=== PATIENT | male | born 1950 | race Caucasian/White ===

== ENCOUNTER → 2018-10-19 | Outpatient (CLI) | payer OTHER ==
[~2018-10-19] VITALS: Ht 172.7 cm; Wt 83.4 kg
[~2018-10-19] MED LIST: ATORVASTATIN CA40 MG PO; BUPROPION HCL150 M1 PO; CO Q-10100 MG PO; IBUPROFEN 200200 M1 PO; VITAMIN D1000 UNI1 PO
--- NOTE | ~2018-10-19 | HPC ---
[facility] [address] [place] [address] PAIN MANAGEMENT CONSULTATION Name: RADHIKA CORMIER Room #: REG [facility]#: [id number] Admission: 10/19/18 Attend Phys: Alfonso Stoll DO Discharge: Date of : 50 Report #: [id number] THIS REPORT FOR: //name// CC: Alfonso Chaparro MD DATE OF SERVICE: 10/19/2018 REFERRING PHYSICIAN: Cb Chaparro MD CHIEF COMPLAINT: Low back pain, right lower extremity pain with paresthesias. HISTORY OF PRESENT ILLNESS: As you know, the patient is a very pleasant 67-year-old male who returns today in followup visit to undergo second in a series of lumbar epidural injections. His first epidural injection provided 100% improvement in overall pain, lasting for nearly 6 weeks. Unfortunately, his symptoms have begun to return. He is now placing pain score 7-8/10. He describes the pain as burning, aching and periodic in nature, exacerbated with sitting for any length of time and changing weather, improves with recent epidural injection. He returns today, requesting next in the series of epidural injections in hopes of improving pain further. He denies injury or trauma. ALLERGIES: ERYTHROMYCIN. CURRENT MEDICATIONS: Ibuprofen, cholecalciferol, coenzyme Q, bupropion, atorvastatin. SOCIAL HISTORY: The patient denies tobacco, IV or illicit drug use. Admits occasional alcohol beverage. He is employed in sales, working, not receiving workmen's compensation, unaccompanied today. IMAGING: No new imaging available. PQRS: The patient has osteoarthritis of right hip, mild in nature. No rheumatoid arthritis. He is placing pain intensity today at 7-8/10, he is not a fall risk, has not had a fall in the last 3 months. He is not on blood thinners. He is not treated for hypertension. He is not on opioid. He has a low opioid assessment risk for addiction. PHYSICAL EXAMINATION: VITAL SIGNS: Blood pressure 133/77, pulse is 86, respiratory rate 16 and unlabored. The patient is 97% on room air. Height 5 feet 8 inches tall, weight 183.8 pounds, BMI calculated 28.0. GENERAL: Well-developed, well-nourished, well-hydrated 67-year-old male appearing stated age, placing current pain score 7-8/10. [address] [address] PAIN MANAGEMENT CONSULTATION Name: RADHIKA CORMIER [place] Room #: REG [facility].#: [id number] Admission: 10/19/18 Attend Phys: Alfonso Stoll DO Discharge: Date of : 50 Report #: [id number] HEENT: Normocephalic, atraumatic. Pupils equal, round, reactive to light. EXTREMITIES: Show no clubbing, no cyanosis, no edema. MUSCULOSKELETAL: Lower extremity strength is symmetrical 5/5. No giveaway strength noted. Seated straight leg raising negative. Supine straight leg raising remains mildly positive right. Kelly's test negative. Modified Gaenslen's positive for axial low back pain. Ankle clonus negative. Babinski is negative. ASSESSMENT: 1. Lumbar radiculopathy. 2. Mild osteoarthritis, right hip. 3. Chronic intractable pain. PLAN: 1. The patient returns today in followup visit, noticing excellent benefit with the previous epidural injection, stating near 100% improvement in overall pain, lasting for nearly 6 weeks. He returns today in followup visit with unfortunately recurrence of symptoms. He is requesting and we will perform next in the series of epidural injections. He has been advised risks and benefits, states understood and wished to proceed. 2. No medication changes made at today's visit. 3. We will see the patient back in followup visit on an as-needed basis for the third and final epidural injection in the 6 months. We recommend to the patient to delay as long as possible to undergo this third in the series as this will preclude us from providing further injections until 6 months after his initial injection of 08/03/2018. PROCEDURE NOTE DESCRIPTION OF PROCEDURE: Lumbar epidural steroid injection under fluoroscopic guidance. This is the second procedure of the first series that the patient is undergoing. After obtaining written consent, the patient was taken back to the fluoroscopy suite, placed in a prone position with pillow under the abdomen to decrease lumbar lordosis. The skin overlying the lumbosacral area was then prepped and draped in aseptic fashion. The lumbar vertebral interspace was then identified by AP fluoroscopy. The skin and subcutaneous tissue overlying the target site of injection was anesthetized with 3 mL 1% lidocaine. A 20-gauge 3-1/2 inch Tuohy needle was then advanced under fluoroscopic guidance towards the epidural space using right paramedian approach. The epidural space was identified using loss of resistance to air technique. After negative aspiration for heme or cerebrospinal fluid, a total of 1 mL of Omnipaque was injected. A lumbar epidurogram was confirmed using both AP and lateral [address] [address] PAIN MANAGEMENT CONSULTATION Name: RADHIKA CORMIER Room #: REG [facility]#: [id number] Admission: 10/19/18 Attend Phys: Alfonso Stoll DO Discharge: Date of : 50 Report #: [id number] fluoroscopy. After negative aspiration for heme or cerebrospinal fluid, 5 mL of a solution containing 2 mL 40 mg per mL, 80 mg of total triamcinolone, 3 mL of lidocaine 1% was injected in increments. Contrast spread was noted posterior epidural space. The needle was then retracted approximately half way and needle tract flushed with 1 mL of 1% lidocaine. Needle was then removed. There were no apparent sensory or motor deficits in the lower extremity following the procedure. A sterile bandage was placed over the injection site. The heart rate, pulse, oximetry and blood pressure were continuously monitored after the procedure. There were no apparent complications. The patient tolerated the procedure well and was carefully escorted to the recovery room in stable condition. There were no apparent complications. After meeting discharge criteria, the patient was then discharged home. <ELECTRONICALLY SIGNED> By: Alfonso Stoll DO 10/26/18 [id number] Alfonso Stoll DO /nt
[2018-10-19 08:27] VITALS: BP 133/77
== END | disposition home or self-care (01) ==
LOC: PAIN 07:58
DX: M54.16 Radiculopathy, lumbar region (principal); G89.29 Other chronic pain; M16.11 Unilateral primary osteoarthritis, right hip; Z79.899 Other long term (current) drug therapy; Z87.891 Personal history of nicotine dependence; Z88.0 Allergy status to penicillin; Z98.890 Other specified postprocedural states

== ENCOUNTER → 2020-05-14 | Outpatient (CLI) | payer OTHER | LOC: ULTRA 10:11 | PROVIDERS: ATTEND Internal Medicine | DX: I65.23 Occlusion and stenosis of bilateral carotid arteries (principal); I25.10 Atherosclerotic heart disease of native coronary artery without angina pectoris; I10 Essential (primary) hypertension ==